=== PATIENT | male | born 1980 | race African-American/Black ===

== ENCOUNTER 2018-02-22 00:44 | Emergency (ER) | payer MEDICAID ==
[~2018-02-22] VITALS: Ht 185.4 cm; Wt 158.0 kg
[2018-02-22] MEDS ORDERED: SODIUM CHLORIDE 0.9% 1,000 ML IV ONE ×2 (04:16→05:59)
[2018-02-22] MEDS ORDERED: ONDANSETRON HCL 4MG/2ML INJ IV ONE (04:30)
[2018-02-22] MEDS ORDERED: MORPHINE SULFATE 10 MG/ML CPJ IV ONE (04:30)
[2018-02-22 04:41] LABS: BASOPHILS % 0.6 % (0.0-2.0); EOSINOPHILS % 2.7 % (0.0-5.0); HEMATOCRIT. 43.3 % (42.0-52.0); HEMOGLOBIN. 14.7 g/dL (14.0-18.0); LYMPHOCYTES % 9.7 % (20.0-50.0); MEAN CORPUSCULAR HEMOGLOBIN 31.5 pg (28.0-32.0); MEAN CORPUSCULAR VOLUME 92.8 fL (80.0-94.0); MEAN PLATELET VOLUME 6.8 fl (7.4-10.4); MONOCYTES % 6.4 % (2.0-8.0); NEUTROPHILS % 80.6 % (40.0-76.0); PLATELET 256 x1000/uL (130-400); RED BLOOD CELL COUNT 4.66 mill/uL (4.7-6.1); RED CELL DISTRIBUTION WIDTH 12.9 % (11.6-14.6)
[2018-02-22 04:43] LABS: CHLORIDE 97 mEq/L (98-107)
[2018-02-22] MEDS ORDERED: CEFTRIAXONE 1 G PREMIX 50 ML IV ONE (06:00)
[2018-02-22] MEDS ORDERED: IOHEXOL-350 100 ML BOTTLE ONE (06:57)
[2018-02-22 07:25] VITALS: BP 172/96
[2018-02-22] MEDS: SODIUM CHLORIDE 0.9% 1000ML BAG (SEPSIS BOLUS) IV ONE ×2 (07:30→07:54)
[2018-02-22 07:35] LABS: CLARITY URINE CLEAR (CLEAR); COLOR URINE YELLOW (YELLOW); KETONES URINE NEGATIVE (NEGATIVE); LEUKOCYTE ESTERASE URINE TRACE (NEGATIVE); NITRITE URINE NEGATIVE (NEGATIVE); OCCULT BLOOD URINE NEGATIVE (NEGATIVE); PH URINE 6.5 (4.5-8.0); PROTEIN URINE NEGATIVE (NEGATIVE); SPECIFIC GRAVITY URINE 1.014 (1.005-1.030)
== END 2018-02-22 07:50 | disposition home or self-care (01) ==
LOC: ER 06:12
DX: J02.9 Acute pharyngitis, unspecified (principal); R19.7 Diarrhea, unspecified; E11.9 Type 2 diabetes mellitus without complications; I10 Essential (primary) hypertension; E05.90 Thyrotoxicosis, unspecified without thyrotoxic crisis or storm; F12.10 Cannabis abuse, uncomplicated; Z79.82 Long term (current) use of aspirin; Z88.6 Allergy status to analgesic agent
CPT/HCPCS: 36415; 70491; 71045; 80053; 81003; 83605; 83690; 85025; 85610; 87040; 87070; 87430; 93005; 96361; 96365; 96375; 99284; J0696; J2270; J2405; J7030; Q9967

== ENCOUNTER 2019-05-16 00:50 | Inpatient (IN) | payer MEDICAID ==
[~2019-05-16] VITALS: Ht 185.4 cm; Wt 144.2 kg
[2019-05-16] MEDS ORDERED: ONDANSETRON HCL 4MG/2ML INJ IV STA ×2 (01:19→03:21)
[2019-05-16] MEDS ORDERED: MORPHINE SULFATE 4 MG/ML CPJ (NOT FOR IM USE) IV STA ×2 (01:19→03:21)
[2019-05-16] MEDS ORDERED: SODIUM CHLORIDE 0.9% 1,000 ML IV ONE (01:19)
[2019-05-16 01:44] LABS: BASOPHILS % 0.8 % (0.0-2.0); EOSINOPHILS % 2.4 % (0.0-5.0); HEMATOCRIT. 42.7 % (42.0-52.0); LYMPHOCYTES % 44.2 % (20.0-50.0); MEAN CORPUSCULAR HEMOGLOBIN 32.2 pg (28.0-32.0); MEAN PLATELET VOLUME 6.9 fl (7.4-10.4); MONOCYTES % 7.9 % (2.0-8.0); NEUTROPHILS % 44.7 % (40.0-76.0); PLATELET 252 x1000/uL (130-400); RED BLOOD CELL COUNT 4.65 mill/uL (4.7-6.1); RED CELL DISTRIBUTION WIDTH 13.2 % (11.6-14.6)
[2019-05-16 01:50] LABS: CHLORIDE 101 mEq/L (98-107)
[2019-05-16 01:52] LABS: INR 0.9; PARTIAL THROMBOPLASTIN TIME 23.8 sec (23.4-31.0); PROTHROMBIN TIME 9.9 sec (9.6-11.0)
[2019-05-16 02:26] LABS: CLARITY URINE CLEAR (CLEAR); COLOR URINE YELLOW (YELLOW); KETONES URINE TRACE (NEGATIVE); LEUKOCYTE ESTERASE URINE TRACE (NEGATIVE); NITRITE URINE NEGATIVE (NEGATIVE); OCCULT BLOOD URINE NEGATIVE (NEGATIVE); PH URINE 6.5 (4.5-8.0); PROTEIN URINE NEGATIVE (NEGATIVE); SPECIFIC GRAVITY URINE 1.035 (1.005-1.030)
[2019-05-16 09:57] VITALS: BP 137/82
[2019-05-16] MEDS ORDERED: ACETAMINOPHEN 325MG TABLET PO PRN (10:15)
[2019-05-16] MEDS ORDERED: SODIUM CHLORIDE 0.9% 1,000 ML IV SCH (10:15)
[2019-05-16] MEDS ORDERED: ENOXAPARIN 40MG/0.4ML SYR SUBCUT SCH (10:15)
[2019-05-16] MEDS ORDERED: ONDANSETRON HCL 4MG/2ML INJ IV PRN (10:15)
[2019-05-16] MEDS ORDERED: DEXTROSE 50% WATER 50ML SYRINGE IV PRN (10:45)
[2019-05-16] MEDS ORDERED: QUET100T MT (11:06)
[2019-05-16] MEDS ORDERED: HYDR12.54 MT (11:06)
[2019-05-16] MEDS ORDERED: LISI2.5T47 MT (11:06)
[2019-05-16] MEDS ORDERED: GLUCO8 PO (11:06)
[2019-05-16 11:55] LABS: CHLORIDE 103 mEq/L (98-107)
[2019-05-16 11:57] LABS: BASOPHILS % 0.6 % (0.0-2.0); EOSINOPHILS % 2.5 % (0.0-5.0); HEMATOCRIT. 44.7 % (42.0-52.0); HEMOGLOBIN. 14.9 g/dL (14.0-18.0); LYMPHOCYTES % 43.7 % (20.0-50.0); MEAN CORPUSCULAR HEMOGLOBIN 31.2 pg (28.0-32.0); MEAN CORPUSCULAR VOLUME 93.6 fL (80.0-94.0); MEAN PLATELET VOLUME 6.9 fl (7.4-10.4); MONOCYTES % 8.5 % (2.0-8.0); NEUTROPHILS % 44.7 % (40.0-76.0); PLATELET 221 x1000/uL (130-400); RED BLOOD CELL COUNT 4.78 mill/uL (4.7-6.1); RED CELL DISTRIBUTION WIDTH 13.2 % (11.6-14.6)
[2019-05-16 12:00] VITALS: BP 157/96
[2019-05-16] MEDS ORDERED: MORPHINE SULFATE 2 MG/ML CPJ (NOT FOR IM USE) IV NR (12:45)
[2019-05-16] MEDS: ENOXAPARIN 30MG/0.3ML SYR SUBCUT SCH ×2 (12:59→21:00)
[2019-05-16] MEDS: INSULIN LISPRO 100 UNITS/ML SUBCUT SCH ×3 (13:06→21:00)
[2019-05-16] MEDS: BLOOD SUGAR DIAGNOSTIC STRIP TEST SCH ×3 (13:06→20:46)
[2019-05-16 16:00] VITALS: BP 146/97
[2019-05-16] MEDS: METOCLOPRAMIDE HCL 10MG TABLET PO SCH ×2 (17:41→23:05)
[2019-05-16 20:00] VITALS: BP 129/92
[2019-05-16] MEDS: OMEPRAZOLE 20MG CAPSULE EXTENDED RELEASE PO SCH (20:47)
[2019-05-16] MEDS: LISINOPRIL 2.5MG TABLET PO SCH (23:28)
[2019-05-17] VITALS: BP 140/97
[2019-05-17 04:00] VITALS: BP 130/89
[2019-05-17] MEDS: METOCLOPRAMIDE HCL 10MG TABLET PO SCH (06:06)
[2019-05-17] MEDS: OMEPRAZOLE 20MG CAPSULE EXTENDED RELEASE PO SCH ×2 (06:06→09:44)
[2019-05-17] MEDS: BLOOD SUGAR DIAGNOSTIC STRIP TEST SCH (06:06)
[2019-05-17 07:24] LABS: BASOPHILS % 0.6 % (0.0-2.0); EOSINOPHILS % 2.2 % (0.0-5.0); HEMATOCRIT. 46.7 % (42.0-52.0); HEMOGLOBIN. 15.8 g/dL (14.0-18.0); LYMPHOCYTES % 41.6 % (20.0-50.0); MEAN CORPUSCULAR HEMOGLOBIN 31.3 pg (28.0-32.0); MEAN CORPUSCULAR VOLUME 92.4 fL (80.0-94.0); MEAN PLATELET VOLUME 6.8 fl (7.4-10.4); MONOCYTES % 8.3 % (2.0-8.0); NEUTROPHILS % 47.3 % (40.0-76.0); PLATELET 240 x1000/uL (130-400); RED BLOOD CELL COUNT 5.05 mill/uL (4.7-6.1); RED CELL DISTRIBUTION WIDTH 13.3 % (11.6-14.6)
[2019-05-17 07:50] LABS: HEPATITIS B SURFACE ANTIGEN NEGATIVE
[2019-05-17 08:20] LABS: HEPATITIS A AB IGM NEGATIVE (NEGATIVE)
[2019-05-17 08:22] LABS: CHLORIDE 103 mEq/L (98-107)
[2019-05-17] MEDS ORDERED: HYDROCHLOROTHIAZIDE 12.5MG CAPSULE PO SCH (09:00)
[2019-05-17] MEDS: INSULIN LISPRO 100 UNITS/ML SUBCUT SCH (09:38)
[2019-05-17] MEDS: LISINOPRIL 2.5MG TABLET PO SCH (09:43)
[2019-05-17] MEDS: ENOXAPARIN 30MG/0.3ML SYR SUBCUT SCH (09:44)
== END 2019-05-17 12:58 | disposition left against medical advice (07) | DRG 254 ==
LOC: ER 00:50 → EDBEDREQ 04:40 → ENRESERV 07:21 → 6EST 08:48
PROVIDERS: ADMIT Internal Medicine; ATTEND Internal Medicine
DX: K40.20 Bilateral inguinal hernia, without obstruction or gangrene, not specified as recurrent (principal); K31.84 Gastroparesis; E11.43 Type 2 diabetes mellitus with diabetic autonomic (poly)neuropathy; E11.65 Type 2 diabetes mellitus with hyperglycemia; E87.5 Hyperkalemia; E88.09 Other disorders of plasma-protein metabolism, not elsewhere classified; I10 Essential (primary) hypertension; K29.70 Gastritis, unspecified, without bleeding; Z91.14 Patient's other noncompliance with medication regimen
CPT/HCPCS: 36415; 71045; 74176; 80048; 80053; 81003; 82962; 83036; 85025; 86705; 86709; 86803; 86850; 86900; 87340; 93005; J1650; J1815; J2270; J2405; J7030; J8597

== ENCOUNTER 2020-03-20 15:33 | Emergency (ER) | payer MEDICAID ==
[~2020-03-20] VITALS: Ht 190.5 cm; Wt 138.1 kg
[~2020-03-20 15:33] MED LIST: GLUCO8 PO; HYDR12.54 MT; LISI2.5T47 MT; QUET100T MT
[2020-03-20] MEDS ORDERED: ACETAMINOPHEN 325MG TABLET PO ONE (16:15)
[2020-03-20 16:50] LABS: BASOPHILS % 0.7 % (0.0-2.0); EOSINOPHILS % 4.1 % (0.0-5.0); HEMATOCRIT. 46.4 % (42.0-52.0); LYMPHOCYTES % 36.1 % (20.0-50.0); MEAN CORPUSCULAR HEMOGLOBIN 31.3 pg (28.0-32.0); MEAN CORPUSCULAR VOLUME 90.7 fL (80.0-94.0); MEAN PLATELET VOLUME 7.2 fl (7.4-10.4); MONOCYTES % 6.6 % (2.0-8.0); NEUTROPHILS % 52.5 % (40.0-76.0); PLATELET 286 x1000/uL (130-400); RED BLOOD CELL COUNT 5.11 mill/uL (4.7-6.1)
[2020-03-20 16:59] LABS: CHLORIDE 99 mEq/L (98-107)
[2020-03-20 17:30] VITALS: BP 146/85
[2020-03-20] MEDS ORDERED: MORPHINE SULFATE 4 MG/ML CPJ (NOT FOR IM USE) IV ONE (17:45)
== END 2020-03-20 19:00 | disposition home or self-care (01) ==
LOC: ER 15:33
DX: U07.1 COVID-19 (principal); S46.911A Strain of unspecified muscle, fascia and tendon at shoulder and upper arm level, right arm, initial encounter; S29.011A Strain of muscle and tendon of front wall of thorax, initial encounter; M79.10 Myalgia, unspecified site; E11.9 Type 2 diabetes mellitus without complications; I10 Essential (primary) hypertension; J45.909 Unspecified asthma, uncomplicated; Z87.828 Personal history of other (healed) physical injury and trauma; Z79.84 Long term (current) use of oral hypoglycemic drugs; Z88.6 Allergy status to analgesic agent; X58.XXXA Exposure to other specified factors, initial encounter; Y93.89 Activity, other specified; Y92.018 Other place in single-family (private) house as the place of occurrence of the external cause
CPT/HCPCS: 36415; 71045; 80053; 83880; 84484; 85025; 93005; 96374; 99285; C9803; J2270; U0003

== ENCOUNTER 2020-04-13 13:44 | Emergency (ER) | payer MEDICAID ==
[~2020-04-13] VITALS: Ht 185.4 cm; Wt 138.0 kg
[2020-04-13] MEDS ORDERED: ONDANSETRON HCL 4MG/2ML INJ IV STA (14:17)
[2020-04-13] MEDS ORDERED: MORPHINE SULFATE 4 MG/ML CPJ (NOT FOR IM USE) IV STA (14:17)
[2020-04-13] MEDS ORDERED: SODIUM CHLORIDE 0.9% 1,000 ML IV ONE (14:30)
[2020-04-13 14:57] LABS: BASOPHILS % 0.7 % (0.0-2.0); EOSINOPHILS % 2.2 % (0.0-5.0); HEMATOCRIT. 45.2 % (42.0-52.0); HEMOGLOBIN. 15.2 g/dL (14.0-18.0); LYMPHOCYTES % 34.5 % (20.0-50.0); MEAN CORPUSCULAR HEMOGLOBIN 30.8 pg (28.0-32.0); MEAN PLATELET VOLUME 7.1 fl (7.4-10.4); MONOCYTES % 8.7 % (2.0-8.0); NEUTROPHILS % 53.9 % (40.0-76.0); PLATELET 221 x1000/uL (130-400); RED BLOOD CELL COUNT 4.92 mill/uL (4.7-6.1); RED CELL DISTRIBUTION WIDTH 13.3 % (11.6-14.6)
[2020-04-13 15:06] LABS: PROTHROMBIN TIME 10.3 sec (9.6-11.0)
[2020-04-13 15:09] LABS: CHLORIDE 102 mEq/L (98-107)
[2020-04-13 16:37] VITALS: BP 144/88
== END 2020-04-13 16:37 | disposition home or self-care (01) ==
LOC: ER 13:44
DX: R10.9 Unspecified abdominal pain (principal); K76.0 Fatty (change of) liver, not elsewhere classified; J45.909 Unspecified asthma, uncomplicated; E11.9 Type 2 diabetes mellitus without complications; E78.00 Pure hypercholesterolemia, unspecified; I10 Essential (primary) hypertension; Z88.6 Allergy status to analgesic agent
CPT/HCPCS: 36415; 74176; 80053; 83690; 85025; 85610; 93005; 96361; 96374; 96375; 99285; J2270; J2405; J7030; Z7610

== ENCOUNTER 2020-04-25 23:02 | Emergency (ER) | payer MEDICAID, OTHER ==
[~2020-04-25] VITALS: Ht 185.4 cm; Wt 137.0 kg
[2020-04-26] MEDS ORDERED: LIDOCAINE HCL/EPINEPHRINE 1%-EPI 1:100,000 10 ML VIAL IJ ONE (00:30)
[2020-04-26] MEDS ORDERED: ACETAMINOPHEN 325MG TABLET PO ONE (00:30)
[2020-04-26] MEDS ORDERED: CEPH500C2 MT (01:56)
[2020-04-26] MEDS ORDERED: SULF1TAB48 MT (01:56)
[2020-04-26 02:16] VITALS: BP 130/80
== END 2020-04-26 02:18 | disposition home or self-care (01) ==
LOC: ER 23:02
DX: L02.31 Cutaneous abscess of buttock (principal); E11.9 Type 2 diabetes mellitus without complications; I10 Essential (primary) hypertension; E78.00 Pure hypercholesterolemia, unspecified; J45.909 Unspecified asthma, uncomplicated; Z88.6 Allergy status to analgesic agent
CPT/HCPCS: 10060; 99284; Z7610

== ENCOUNTER 2020-11-09 12:26 | Emergency (ER) | payer MEDICAID, OTHER ==
[~2020-11-09] VITALS: Ht 185.4 cm; Wt 138.0 kg
[~2020-11-09 12:26] MED LIST changes: +CEPH500C2 MT; +SULF1TAB48 MT
[2020-11-09] MEDS ORDERED: MORPHINE SULFATE 4 MG/ML CPJ (NOT FOR IM USE) IV STA (13:08)
[2020-11-09 13:47] LABS: BASOPHILS % 0.6 % (0.0-2.0); EOSINOPHILS % 2.2 % (0.0-5.0); HEMATOCRIT. 42.1 % (42.0-52.0); HEMOGLOBIN. 14.7 g/dL (14.0-18.0); LYMPHOCYTES % 20.9 % (20.0-50.0); MEAN CORPUSCULAR HEMOGLOBIN 31.8 pg (28.0-32.0); MEAN CORPUSCULAR VOLUME 91.3 fL (80.0-94.0); MEAN PLATELET VOLUME 7.2 fl (7.4-10.4); MONOCYTES % 9.2 % (2.0-8.0); NEUTROPHILS % 67.1 % (40.0-76.0); PLATELET 270 x1000/uL (130-400); RED BLOOD CELL COUNT 4.61 mill/uL (4.7-6.1); RED CELL DISTRIBUTION WIDTH 12.4 % (11.6-14.6)
[2020-11-09 13:50] LABS: CHLORIDE 103 mEq/L (98-107)
[2020-11-09] MEDS ORDERED: LIDOCAINE HCL 1% 20ML VIAL (Pyxis) INJ INFIL ONE (16:00)
[2020-11-09] MEDS ORDERED: MORPHINE SULFATE 4 MG/ML CPJ (NOT FOR IM USE) IV ONE (16:00)
[2020-11-09] MEDS ORDERED: SULF1TAB48 MT (16:27)
[2020-11-09] MEDS ORDERED: POLY119P2 MT (16:27)
[2020-11-09] MEDS ORDERED: IOHEXOL-300 100 ML BOTTLE ONE (16:44)
[2020-11-09 16:50] VITALS: BP 148/82
== END 2020-11-09 16:58 | disposition home or self-care (01) ==
LOC: ER 12:26
DX: L02.215 Cutaneous abscess of perineum (principal); E78.00 Pure hypercholesterolemia, unspecified; I10 Essential (primary) hypertension; J45.909 Unspecified asthma, uncomplicated; E11.9 Type 2 diabetes mellitus without complications; Z87.828 Personal history of other (healed) physical injury and trauma; Z79.84 Long term (current) use of oral hypoglycemic drugs; Z88.6 Allergy status to analgesic agent
CPT/HCPCS: 36415; 46050; 72193; 80053; 82962; 85025; 96374; 96376; 99285; J2270; J3490; Q9967; 10060

== ENCOUNTER 2021-02-23 18:29 | Emergency (ER) | payer MEDICAID, OTHER ==
[~2021-02-23] VITALS: Ht 185.4 cm; Wt 136.0 kg
[~2021-02-23 18:29] MED LIST changes: +POLY119P2 MT
[2021-02-23] MEDS ORDERED: ACETAMINOPHEN 325MG TABLET PO STA (18:48)
[2021-02-23] MEDS ORDERED: SODIUM CHLORIDE 0.9% 1000ML BAG (SEPSIS BOLUS) IV ONE (19:00)
[2021-02-23] MEDS ORDERED: CEFTRIAXONE 1 G PREMIX 50 ML IV ONE (19:00)
[2021-02-23] MEDS ORDERED: IPRATROPIUM BROMIDE (0.02%) 0.5MG/2.5ML NEB HHN STA (19:17)
[2021-02-23] MEDS ORDERED: ALBUTEROL (0.083%) 2.5MG/3ML NEB HHN STA (19:17)
[2021-02-23 21:20] LABS: BASOPHILS % 0.4 % (0.0-2.0); EOSINOPHILS % 1.1 % (0.0-5.0); HEMATOCRIT. 39.6 % (42.0-52.0); HEMOGLOBIN. 13.6 g/dL (14.0-18.0); LYMPHOCYTES % 8.5 % (20.0-50.0); MEAN CORPUSCULAR HEMOGLOBIN 31.4 pg (28.0-32.0); MEAN CORPUSCULAR VOLUME 91.2 fL (80.0-94.0); MONOCYTES % 10.8 % (2.0-8.0); NEUTROPHILS % 79.2 % (40.0-76.0); PLATELET 225 x1000/uL (130-400); RED BLOOD CELL COUNT 4.34 mill/uL (4.7-6.1); RED CELL DISTRIBUTION WIDTH 12.9 % (11.6-14.6)
[2021-02-23 21:27] LABS: CHLORIDE 101 mEq/L (98-107)
[2021-02-23] MEDS ORDERED: VANCOMYCIN 1 G PREMIX 200 ML IV SCH (21:45)
[2021-02-23 22:37] LABS: CLARITY URINE CLEAR (CLEAR); COLOR URINE YELLOW (YELLOW); KETONES URINE NEGATIVE (NEGATIVE); LEUKOCYTE ESTERASE URINE 1+ (NEGATIVE); NITRITE URINE NEGATIVE (NEGATIVE); OCCULT BLOOD URINE NEGATIVE (NEGATIVE); PH URINE 7.5 (4.5-8.0); PROTEIN URINE TRACE (NEGATIVE); SPECIFIC GRAVITY URINE 1.025 (1.005-1.030)
[2021-02-23 23:00] VITALS: BP 132/89
== END 2021-02-23 23:16 | disposition short-term general hospital (02) ==
LOC: ER 18:29 → CANBEDREQ 02-24 03:04
DX: U07.1 COVID-19 (principal); A41.9 Sepsis, unspecified organism; R65.20 Severe sepsis without septic shock; I10 Essential (primary) hypertension; J45.909 Unspecified asthma, uncomplicated; E11.9 Type 2 diabetes mellitus without complications; E78.00 Pure hypercholesterolemia, unspecified; Z88.6 Allergy status to analgesic agent; Z79.899 Other long term (current) drug therapy; Z98.890 Other specified postprocedural states
CPT/HCPCS: 36415; 71045; 80053; 81003; 82962; 83605; 83880; 84484; 85025; 87040; 87086; 87426; 93005; 96365; 99285; J0696

== ENCOUNTER 2021-03-22 01:02 | Emergency (ER) | payer MEDICAID, OTHER ==
[~2021-03-22] VITALS: Ht 185.4 cm; Wt 139.0 kg
[2021-03-22] MEDS ORDERED: ACETAMINOPHEN WITH CODEINE 300/30MG TABLET PO ONE (02:15)
[2021-03-22 04:30] VITALS: BP 162/85
== END 2021-03-22 04:32 | disposition home or self-care (01) ==
LOC: ER 01:02
DX: M79.18 Myalgia, other site (principal); I83.91 Asymptomatic varicose veins of right lower extremity; E11.9 Type 2 diabetes mellitus without complications; I10 Essential (primary) hypertension; Z87.828 Personal history of other (healed) physical injury and trauma; Z98.890 Other specified postprocedural states; Z96.659 Presence of unspecified artificial knee joint; Z79.84 Long term (current) use of oral hypoglycemic drugs; Z88.6 Allergy status to analgesic agent
CPT/HCPCS: 76857; 99284

== ENCOUNTER 2021-03-24 00:26 | Emergency (ER) | payer OTHER ==
[~2021-03-24] VITALS: Ht 185.4 cm; Wt 138.0 kg
[2021-03-24] MEDS ORDERED: TETANUS, DIPHTHERIA, PERTUSSIS VAC/PF 0.5ML (>10YR OLD) IM ONE (00:45)
[2021-03-24] MEDS ORDERED: BACITRACIN ZINC OINT UDPKT TOP ONE (00:45)
[2021-03-24] MEDS ORDERED: AMOX-424 MT (01:10)
[2021-03-24] MEDS ORDERED: BO1 TP (01:10)
[2021-03-24 01:25] VITALS: BP 160/90
== END 2021-03-24 01:39 | disposition home or self-care (01) ==
LOC: ER 00:26
DX: S41.151A Open bite of right upper arm, initial encounter (principal); E11.9 Type 2 diabetes mellitus without complications; I10 Essential (primary) hypertension; J45.909 Unspecified asthma, uncomplicated; Z88.6 Allergy status to analgesic agent; Z98.890 Other specified postprocedural states; Z96.659 Presence of unspecified artificial knee joint; Z79.84 Long term (current) use of oral hypoglycemic drugs; Y04.1XXA Assault by human bite, initial encounter; Y93.89 Activity, other specified; Y92.89 Other specified places as the place of occurrence of the external cause
CPT/HCPCS: 90471; 90715; 99283

== ENCOUNTER 2021-05-04 00:43 | Emergency (ER) | payer MEDICAID, OTHER ==
[~2021-05-04] VITALS: Ht 185.4 cm; Wt 138.0 kg
[~2021-05-04 00:43] MED LIST changes: +AMOX-424 MT; +BO1 TP
[2021-05-04] MEDS ORDERED: ONDANSETRON HCL 4MG/2ML INJ IV STA (01:16)
[2021-05-04] MEDS ORDERED: MORPHINE SULFATE 4 MG/ML CPJ (NOT FOR IM USE) IV STA (01:16)
[2021-05-04] MEDS ORDERED: SODIUM CHLORIDE 0.9% 1,000 ML IV ONE (01:30)
[2021-05-04 02:33] LABS: BASOPHILS % 0.3 % (0.0-2.0); EOSINOPHILS % 1.8 % (0.0-5.0); HEMOGLOBIN. 14.6 g/dL (14.0-18.0); LYMPHOCYTES % 33.1 % (20.0-50.0); MEAN CORPUSCULAR HEMOGLOBIN 30.8 pg (28.0-32.0); MEAN CORPUSCULAR VOLUME 90.3 fL (80.0-94.0); MONOCYTES % 7.2 % (2.0-8.0); NEUTROPHILS % 57.6 % (40.0-76.0); PLATELET 284 x1000/uL (130-400); RED BLOOD CELL COUNT 4.76 mill/uL (4.7-6.1); RED CELL DISTRIBUTION WIDTH 12.9 % (11.6-14.6)
[2021-05-04 02:42] LABS: CHLORIDE 103 mEq/L (98-107)
[2021-05-04 04:40] VITALS: BP 150/86
== END 2021-05-04 04:41 | disposition home or self-care (01) ==
LOC: ER 00:43
DX: R51.9 Headache, unspecified (principal); R07.89 Other chest pain; I10 Essential (primary) hypertension; E11.9 Type 2 diabetes mellitus without complications; J45.909 Unspecified asthma, uncomplicated; Z88.6 Allergy status to analgesic agent; Z79.899 Other long term (current) drug therapy
CPT/HCPCS: 36415; 70450; 71045; 80053; 83880; 84484; 85025; 93005; 96361; 96374; 96375; 99291; J2270; J2405; J7030

== ENCOUNTER 2021-06-17 17:48 | Emergency (ER) | payer MEDICAID, OTHER ==
[~2021-06-17] VITALS: Ht 193 cm; Wt 137.0 kg
[2021-06-17 18:29] VITALS: BP 138/81
[2021-06-17] MEDS ORDERED: IBUPROFEN 600MG TABLET PO STA (18:42)
[2021-06-17] MEDS ORDERED: ACETAMINOPHEN 325MG TABLET PO ONE (20:15)
[2021-06-17 20:23] LABS: BASOPHILS % 0.4 % (0.0-2.0); EOSINOPHILS % 2.9 % (0.0-5.0); HEMATOCRIT. 42.8 % (42.0-52.0); HEMOGLOBIN. 14.2 g/dL (14.0-18.0); LYMPHOCYTES % 37.2 % (20.0-50.0); MEAN CORPUSCULAR HEMOGLOBIN 30.6 pg (28.0-32.0); MEAN CORPUSCULAR VOLUME 92.2 fL (80.0-94.0); MEAN PLATELET VOLUME 6.9 fl (7.4-10.4); MONOCYTES % 11.2 % (2.0-8.0); NEUTROPHILS % 48.3 % (40.0-76.0); PLATELET 274 x1000/uL (130-400); RED BLOOD CELL COUNT 4.65 mill/uL (4.7-6.1); RED CELL DISTRIBUTION WIDTH 12.8 % (11.6-14.6)
[2021-06-17 20:34] LABS: CHLORIDE 105 mEq/L (98-107)
[2021-06-17 20:37] LABS: ETHANOL BLOOD < 10 mg/dL
[2021-06-17] MEDS ORDERED: GABA-529 MT (20:42)
== END 2021-06-17 20:49 | disposition home or self-care (01) ==
LOC: ER 17:48
DX: M79.18 Myalgia, other site (principal); G62.9 Polyneuropathy, unspecified; M79.641 Pain in right hand; M79.642 Pain in left hand; J45.909 Unspecified asthma, uncomplicated; E11.9 Type 2 diabetes mellitus without complications; I10 Essential (primary) hypertension; Z79.899 Other long term (current) drug therapy
CPT/HCPCS: 36415; 80053; 80320; 82962; 85025; 99283; G0480

== ENCOUNTER 2021-08-07 12:49 | Emergency (ER) | payer OTHER ==
[~2021-08-07] VITALS: Ht 177.8 cm; Wt 175.0 kg
[~2021-08-07 12:49] MED LIST changes: +AMOX-424 PO; +GABA-529 MT; +TOPUD PO
[2021-08-07] MEDS ORDERED: BACITRACIN ZINC OINT UDPKT TOP ONE (14:45)
[2021-08-07] MEDS ORDERED: HYDROCODONE/ACETAMINOPHEN 5/325MG TABLET PO ONE (14:45)
[2021-08-07] MEDS ORDERED: LIDOCAINE HCL/EPINEPHRINE 1%-EPI 1:100,000 20 ML VIAL INFIL ONE (14:45)
[2021-08-07 15:14] VITALS: BP 126/77
[2021-08-07] MEDS ORDERED: HYDR-4001 PO (17:56)
[2021-08-07] MEDS ORDERED: SULF1TAB48 PO (17:56)
[2021-08-07] MEDS ORDERED: AMOX1TAB16 PO (17:56)
== END 2021-08-07 18:57 | disposition home or self-care (01) ==
LOC: ER 12:49
DX: L02.31 Cutaneous abscess of buttock (principal); J45.909 Unspecified asthma, uncomplicated; I10 Essential (primary) hypertension; E11.9 Type 2 diabetes mellitus without complications; Z79.899 Other long term (current) drug therapy; Z88.6 Allergy status to analgesic agent
CPT/HCPCS: 99283; J3490

== ENCOUNTER 2021-09-24 01:04 | Emergency (ER) | payer OTHER ==
[~2021-09-24] VITALS: Ht 185.4 cm; Wt 139.0 kg
[~2021-09-24 01:04] MED LIST changes: +AMOX1TAB16 PO; +HYDR-4001 PO; +SULF1TAB48 PO
[2021-09-24] MEDS ORDERED: ONDANSETRON HCL 4MG/2ML INJ IV STA (03:29)
[2021-09-24] MEDS ORDERED: MORPHINE SULFATE 4 MG/ML CPJ (NOT FOR IM USE) IV STA (03:29)
[2021-09-24] MEDS ORDERED: SODIUM CHLORIDE 0.9% 1,000 ML IV ONE (03:30)
[2021-09-24 04:41] LABS: BASOPHILS % 0.7 % (0.0-2.0); EOSINOPHILS % 1.6 % (0.0-5.0); HEMATOCRIT. 45.1 % (42.0-52.0); HEMOGLOBIN. 14.8 g/dL (14.0-18.0); LYMPHOCYTES % 24.8 % (20.0-50.0); MEAN CORPUSCULAR HEMOGLOBIN 30.7 pg (28.0-32.0); MEAN CORPUSCULAR VOLUME 93.2 fL (80.0-94.0); MEAN PLATELET VOLUME 7.1 fl (7.4-10.4); MONOCYTES % 14.3 % (2.0-8.0); NEUTROPHILS % 58.6 % (40.0-76.0); PLATELET 223 x1000/uL (130-400); RED BLOOD CELL COUNT 4.84 mill/uL (4.7-6.1); RED CELL DISTRIBUTION WIDTH 13.2 % (11.6-14.6)
[2021-09-24 05:18] LABS: CHLORIDE 99 mEq/L (98-107)
[2021-09-24 05:28] LABS: BETA HYDROXYBUTYRATE 0.1 mMol/L (0.0-0.3)
[2021-09-24 06:38] LABS: CLARITY URINE CLEAR (CLEAR); COLOR URINE YELLOW (YELLOW); KETONES URINE NEGATIVE (NEGATIVE); LEUKOCYTE ESTERASE URINE NEGATIVE (NEGATIVE); NITRITE URINE NEGATIVE (NEGATIVE); OCCULT BLOOD URINE TRACE (NEGATIVE); PH URINE 5.5 (4.5-8.0); PROTEIN URINE NEGATIVE (NEGATIVE); SPECIFIC GRAVITY URINE 1.036 (1.005-1.030)
[2021-09-24 08:38] VITALS: BP 124/73
== END 2021-09-24 09:08 | disposition short-term general hospital (02) ==
LOC: ER 01:04
DX: U07.1 COVID-19 (principal); E11.65 Type 2 diabetes mellitus with hyperglycemia; I10 Essential (primary) hypertension; J45.909 Unspecified asthma, uncomplicated; Z79.84 Long term (current) use of oral hypoglycemic drugs; Z88.6 Allergy status to analgesic agent
CPT/HCPCS: 36415; 71045; 74176; 80053; 81003; 82010; 82962; 83605; 83690; 84145; 84484; 85025; 87040; 87426; 93005; 96374; 96375; 99291; C9803; J2270; J2405; J7030

== ENCOUNTER 2021-11-07 00:17 | Emergency (ER) | payer MEDICAID, OTHER ==
[~2021-11-07] VITALS: Ht 185.4 cm; Wt 136.0 kg
[2021-11-07 01:32] VITALS: BP 127/85
== END 2021-11-07 05:50 | disposition left against medical advice (07) ==
LOC: ER 00:17
DX: Z53.21 Procedure and treatment not carried out due to patient leaving prior to being seen by health care provider (principal)

== ENCOUNTER 2022-01-28 00:20 | Emergency (ER) | payer OTHER ==
[~2022-01-28] VITALS: Ht 185.4 cm; Wt 135.8 kg
[2022-01-28] MEDS ORDERED: AMOXICILLIN 500 MG CAPSULE PO ONE (03:45)
[2022-01-28] MEDS ORDERED: HYDROCODONE/ACETAMINOPHEN 5/325MG TABLET PO ONE (03:45)
[2022-01-28] MEDS ORDERED: HYDR-4001 MT (03:52)
[2022-01-28] MEDS ORDERED: AMOX-494 MT (03:53)
[2022-01-28 04:15] VITALS: BP 145/104
[2022-01-28] MEDS ORDERED: HYDROCODONE/ACETAMINOPHEN 5/325MG TABLET PO NR (04:15)
[2022-01-28] MEDS ORDERED: AMOXICILLIN 500 MG CAPSULE PO NR (04:15)
== END 2022-01-28 04:20 | disposition home or self-care (01) ==
LOC: ER 00:20
DX: K08.89 Other specified disorders of teeth and supporting structures (principal); I10 Essential (primary) hypertension; E11.9 Type 2 diabetes mellitus without complications; J45.909 Unspecified asthma, uncomplicated; E66.9 Obesity, unspecified; K43.9 Ventral hernia without obstruction or gangrene; Z68.39 Body mass index [BMI] 39.0-39.9, adult; Z87.828 Personal history of other (healed) physical injury and trauma; Z98.890 Other specified postprocedural states; Z79.84 Long term (current) use of oral hypoglycemic drugs; Z88.6 Allergy status to analgesic agent
CPT/HCPCS: 99283

== ENCOUNTER 2022-11-17 15:13 | Emergency (ER) | payer OTHER ==
[~2022-11-17] VITALS: Ht 185.4 cm; Wt 132.0 kg
[~2022-11-17 15:13] MED LIST changes: +AMOX-494 MT; +HYDR-4001 MT
[2022-11-17 15:20] VITALS: BP 133/86; TEMP 99.2; O2SAT 98
[2022-11-17 15:22] VITALS: PULSE 78; RESP 16
[2022-11-17] MEDS ORDERED: LIDOCAINE HCL/EPINEPHRINE 1%-EPI 1:100,000 20 ML VIAL INFIL ONE (22:45)
[2022-11-17] MEDS ORDERED: HYDROCODONE/ACETAMINOPHEN 5/325MG TABLET PO ONE (22:45)
[2022-11-17] MEDS ORDERED: BACITRACIN ZINC OINT UDPKT TOP ONE (22:45)
[2022-11-17] MEDS ORDERED: SULF1TAB48 MT (23:39)
== END 2022-11-18 00:23 | disposition home or self-care (01) ==
LOC: ER 15:13
DX: L02.31 Cutaneous abscess of buttock (principal); J45.909 Unspecified asthma, uncomplicated; E11.9 Type 2 diabetes mellitus without complications; I10 Essential (primary) hypertension; Z79.899 Other long term (current) drug therapy
CPT/HCPCS: 10060; 99283; J3490; Z7610 ×2

== ENCOUNTER 2023-07-07 18:48 | Inpatient (IN) | payer BC, MEDICAID, OTHER ==
[~2023-07-07] VITALS: Ht 185.4 cm; Wt 145.1 kg
[2023-07-07 23:05] LABS: BASOPHILS % 0.5 % (0.0-2.0); EOSINOPHILS % 0.6 % (0.0-5.0); HEMATOCRIT. 35.9 % (42.0-52.0); HEMOGLOBIN. 11.6 g/dL (14.0-18.0); LYMPHOCYTES % 24.9 % (20.0-50.0); MEAN CORPUSCULAR HEMOGLOBIN 28.8 pg (28.0-32.0); MEAN CORPUSCULAR HGB CONC 32.3 g/dL (31.0-37.0); MEAN CORPUSCULAR VOLUME 89.2 fL (80.0-94.0); MEAN PLATELET VOLUME 7.2 fl (7.4-10.4); MONOCYTES % 7.1 % (2.0-8.0); NEUTROPHILS % 66.9 % (40.0-76.0); PLATELET 352 x1000/uL (130-400); RED BLOOD CELL COUNT 4.02 mill/uL (4.7-6.1); RED CELL DISTRIBUTION WIDTH 16.4 % (11.6-14.6)
[2023-07-07 23:13] LABS: CHLORIDE 106 mEq/L (98-107); POTASSIUM 4.4 mEq/L (3.5-5.1); SODIUM 135 mEq/L (136-145)
[2023-07-07 23:14] LABS: CALCIUM 8.7 mg/dL (8.7-10.4); CARBON DIOXIDE 23 mEq/L (21-32)
[2023-07-07 23:19] LABS: CREATININE 1.1 mg/dL (0.6-1.3); UREA NITROGEN BLOOD 16 mg/dL (9-23)
[2023-07-07 23:31] LABS: GLUCOSE 125 mg/dL (70-105)
[2023-07-08 04:00] VITALS: BP 130/96; PULSE 104; TEMP 96.4
[2023-07-08 04:26] VITALS: BP 130/96; PULSE 102; RESP 20; TEMP 96.4
[2023-07-08] MEDS ORDERED: DEXTROSE 50% WATER 50ML SYRINGE IV PRN (07:45)
[2023-07-08] MEDS ORDERED: ACETAMINOPHEN 325MG TABLET PO PRN ×2 (07:45)
[2023-07-08] MEDS ORDERED: IPRATROPIUM/ALBUTEROL 0.5-3(2.5)MG/3ML NEB HHN PRN (07:45)
[2023-07-08] MEDS: INSULIN LISPRO 100 UNITS/ML SUBCUT SCH (07:50)
[2023-07-08 08:00] VITALS: BP 127/82; PULSE 106; RESP 20; TEMP 97.9
[2023-07-08] MEDS: BLOOD SUGAR DIAGNOSTIC STRIP TEST SCH (08:00)
[2023-07-08] MEDS: FUROSEMIDE 40MG/4ML VIAL IVP SCH (10:07)
[2023-07-08] MEDS: ENOXAPARIN 40MG/0.4ML SYR SUBCUT SCH (10:07)
[2023-07-08] MEDS: PANTOPRAZOLE 40MG DR TABLET PO SCH (10:08)
[2023-07-08] MEDS: LOSARTAN 25 MG TABLET PO SCH (10:08)
[2023-07-08] MEDS: METOPROLOL TARTRATE 50MG TABLET PO SCH (10:09)
[2023-07-08 11:41] LABS: IRON 45 ug/dL (65-175)
[2023-07-08 11:43] LABS: TRIGLYCERIDE 51 mg/dL (0-150)
[2023-07-08 11:44] LABS: LDL CHOLESTEROL 81 mg/dL (5-100); TOTAL IRON BINDING CAPACITY 305 ug/dl (250-425)
[2023-07-08 11:45] LABS: CHOLESTEROL 116 mg/dL (<200); HDL CHOLESTEROL 29 mg/dL (>55); PHOSPHORUS 2.9 mg/dL (2.5-4.9)
[2023-07-08 11:48] LABS: T4 FREE 0.96 ng/dL (0.89-1.76); THYROID STIMULATING HORMONE 2.25 uIU/mL (0.55-4.78)
[2023-07-08 11:51] LABS: FOLIC ACID (FOLATE) SERUM 11.26 ng/mL (>5.38)
[2023-07-08 11:52] LABS: VITAMIN B12 SERUM 877 pg/mL (211-911)
[2023-07-08 12:00] VITALS: BP 118/62; PULSE 98; RESP 18; TEMP 97.3
[2023-07-08] MEDS: ONDANSETRON HCL 4MG/2ML INJ IV PRN (13:51)
[2023-07-08 16:00] VITALS: BP 110/70; PULSE 85; RESP 19; TEMP 97
[2023-07-08] MEDS: APIXABAN 5 MG TABLET PO SCH (17:38)
[2023-07-08] MEDS: SPIRONOLACTONE 25MG TABLET PO SCH (17:39)
[2023-07-08 20:00] VITALS: BP 114/75; PULSE 93; RESP 16; TEMP 97.1
[2023-07-08 21:46] LABS: TROPONIN I HIGH SENSITIVITY 27 ng/L (3.0-53)
[2023-07-08] MEDS: INSULIN GLARGINE 100 UNITS/ML SUBCUT SCH (21:51)
[2023-07-09] VITALS: BP 118/85; PULSE 95; RESP 17; TEMP 97.4
[2023-07-09 04:00] VITALS: BP 115/75; PULSE 83; RESP 19; TEMP 97
[2023-07-09 06:01] LABS: CHLORIDE 104 mEq/L (98-107); POTASSIUM 4.3 mEq/L (3.5-5.1); SODIUM 137 mEq/L (136-145)
[2023-07-09 06:02] LABS: CALCIUM 8.7 mg/dL (8.7-10.4); CARBON DIOXIDE 24 mEq/L (21-32)
[2023-07-09 06:07] LABS: GLUCOSE 102 mg/dL (70-105); UREA NITROGEN BLOOD 20 mg/dL (9-23)
[2023-07-09 06:08] LABS: ALANINE AMINOTRANSFERASE 65 IU/L (10-49)
[2023-07-09 06:09] LABS: ASPARTATE AMINOTRANSFERASE 61 IU/L (<34); PROTEIN TOTAL 6.1 g/dL (6.0-8.3)
[2023-07-09 08:00] VITALS: BP 128/81; PULSE 95; RESP 18; TEMP 96.4
[2023-07-09 12:00] VITALS: BP 127/82; PULSE 91; RESP 19; TEMP 97.5
[2023-07-09 16:00] VITALS: BP 144/96; PULSE 86; RESP 18; TEMP 97.6
[2023-07-09 20:04] LABS: *AMPHETAMINES SCREEN URINE NEGATIVE (NEGATIVE); *BARBITURATES SCREEN URINE NEGATIVE (NEGATIVE); *COCAINE SCREEN URINE PRESUMPTIVE POSITIVE (NEGATIVE); CANNABINOID URINE SCREEN PRESUMPTIVE POSITIVE (NEGATIVE); ECSTASY MDMA SCREEN URINE NEGATIVE (NEGATIVE); METHADONE URINE SCREEN NEGATIVE (NEGATIVE); OPIATES URINE SCREEN NEGATIVE (NEGATIVE); PHENCYCLIDINE URINE SCREEN NEGATIVE (NEGATIVE)
[2023-07-09 20:13] LABS: *BENZODIAZEPINES SCREEN URINE NEGATIVE (NEGATIVE)
[2023-07-09 22:00] VITALS: BP 112/84; PULSE 93; RESP 20; TEMP 97.8
[2023-07-10] VITALS: PULSE 98; RESP 24
[2023-07-10 04:00] VITALS: BP 131/88; PULSE 95; RESP 26; TEMP 97.6
[2023-07-10 07:59] LABS: CALCIUM 8.4 mg/dL (8.7-10.4); CHLORIDE 104 mEq/L (98-107); POTASSIUM 3.8 mEq/L (3.5-5.1); SODIUM 136 mEq/L (136-145)
[2023-07-10 08:00] VITALS: BP 130/89; PULSE 90; RESP 18; TEMP 97.8
[2023-07-10 08:00] LABS: CARBON DIOXIDE 25 mEq/L (21-32)
[2023-07-10 08:05] LABS: CREATININE 0.9 mg/dL (0.6-1.3); GLUCOSE 105 mg/dL (70-105); UREA NITROGEN BLOOD 22 mg/dL (9-23)
[2023-07-10 11:41] VITALS: BP 118/93; PULSE 72; TEMP 98; O2SAT 96
[2023-07-10 12:00] VITALS: BP 118/93; PULSE 72; RESP 18; TEMP 98
[2023-07-10] MEDS: FUROSEMIDE 40MG/4ML VIAL IVP SCH (13:31)
[2023-07-11] MEDS ORDERED: FAMOTIDINE 20MG TABLET PO SCH (09:00)
== END 2023-07-10 15:00 | disposition home or self-care (01) | DRG 816 ==
LOC: ER 18:48 → 6EST 07-08 02:14 → EDBEDREQTM 07-08 02:18 → EDBEDREQ 07-08 02:18 → ER 07-08 03:45 → 3WST 07-09 21:48
PROVIDERS: ADMIT Internal Medicine; ATTEND Internal Medicine
DX: T40.5X1A Poisoning by cocaine, accidental (unintentional), initial encounter (principal); I50.23 Acute on chronic systolic (congestive) heart failure; I42.6 Alcoholic cardiomyopathy; D63.8 Anemia in other chronic diseases classified elsewhere; E87.1 Hypo-osmolality and hyponatremia; I11.0 Hypertensive heart disease with heart failure; Z79.01 Long term (current) use of anticoagulants; Z68.41 Body mass index [BMI] 40.0-44.9, adult; Z86.711 Personal history of pulmonary embolism; E11.9 Type 2 diabetes mellitus without complications; E66.9 Obesity, unspecified; I25.5 Ischemic cardiomyopathy; Z59.00 Homelessness unspecified; F14.988 Cocaine use, unspecified with other cocaine-induced disorder; J45.909 Unspecified asthma, uncomplicated; Z86.718 Personal history of other venous thrombosis and embolism; Z88.6 Allergy status to analgesic agent
CPT/HCPCS: 36415; 71045; 76700; 80048; 80053; 80061; 80305; 82607; 82728; 82746; 82962; 83036; 83540; 83550; 83735; 83880; 84100; 84439; 84443; 84484; 85025; 93005; 93306; 93970; 99285; J1650; J1815; J1940; J2405

== ENCOUNTER 2023-08-04 23:02 | Emergency (ER) | payer BC, MEDICAID ==
[~2023-08-04] VITALS: Ht 185.4 cm; Wt 124.0 kg
[2023-08-04 23:15] VITALS: TEMP 98.1
[2023-08-05 02:28] LABS: CHLORIDE 102 mEq/L (98-107); POTASSIUM 4.4 mEq/L (3.5-5.1); SODIUM 133 mEq/L (136-145)
[2023-08-05 02:29] LABS: BASOPHILS % 0.4 % (0.0-2.0); CALCIUM 8.4 mg/dL (8.7-10.4); CARBON DIOXIDE 27 mEq/L (21-32); EOSINOPHILS % 0.3 % (0.0-5.0); HEMOGLOBIN. 10.9 g/dL (14.0-18.0); LYMPHOCYTES % 16.2 % (20.0-50.0); MEAN CORPUSCULAR HEMOGLOBIN 27.8 pg (28.0-32.0); MEAN CORPUSCULAR HGB CONC 32.9 g/dL (31.0-37.0); MEAN CORPUSCULAR VOLUME 84.5 fL (80.0-94.0); MEAN PLATELET VOLUME 6.8 fl (7.4-10.4); NEUTROPHILS % 75.1 % (40.0-76.0); PLATELET 381 x1000/uL (130-400); RED BLOOD CELL COUNT 3.91 mill/uL (4.7-6.1); RED CELL DISTRIBUTION WIDTH 16.9 % (11.6-14.6); WHITE BLOOD COUNT 9.1 x1000/uL (4.5-11.0)
[2023-08-05 02:33] VITALS: PULSE 111; RESP 20; O2SAT 99
[2023-08-05] MEDS: ALBUTEROL (0.083%) 2.5MG/3ML NEB HHN ONE (02:33)
[2023-08-05 02:34] LABS: GLUCOSE 133 mg/dL (70-105); UREA NITROGEN BLOOD 13 mg/dL (9-23)
[2023-08-05 02:36] LABS: TROPONIN I HIGH SENSITIVITY 13 ng/L (3.0-53)
[2023-08-05] MEDS: ACETAMINOPHEN 325MG TABLET PO ONE (03:08)
[2023-08-05] MEDS ORDERED: BACL-141 MT (04:32)
[2023-08-05] MEDS ORDERED: ACET-2708 MT (04:32)
[2023-08-05] MEDS ORDERED: GUAI600T26 MT (04:34)
[2023-08-05 04:46] LABS: TROPONIN I HIGH SENSITIVITY 12 ng/L (3.0-53)
[2023-08-05 06:03] VITALS: BP 121/75; PULSE 100
== END 2023-08-05 06:04 | disposition home or self-care (01) ==
LOC: ER 23:02
DX: R05.9 Cough, unspecified (principal); R60.9 Edema, unspecified; D64.9 Anemia, unspecified; I11.0 Hypertensive heart disease with heart failure; I50.9 Heart failure, unspecified; E11.9 Type 2 diabetes mellitus without complications; J45.909 Unspecified asthma, uncomplicated; F12.10 Cannabis abuse, uncomplicated
CPT/HCPCS: 99285; 80048; 83880; 85025; 84484; 36415; 71045; 94640; 93005; Z7610 ×3

== ENCOUNTER 2023-08-26 18:59 | Emergency (ER) | payer BC ==
[~2023-08-26] VITALS: Ht 188 cm; Wt 121.0 kg
[~2023-08-26 18:59] MED LIST changes: +ACET-2708 MT; +GUAI600T26 MT
[2023-08-26 19:05] VITALS: O2SAT 99
[2023-08-26 20:11] LABS: BASOPHILS % 0.6 % (0.0-2.0); EOSINOPHILS % 1.3 % (0.0-5.0); HEMATOCRIT. 33.5 % (42.0-52.0); HEMOGLOBIN. 10.7 g/dL (14.0-18.0); LYMPHOCYTES % 19.2 % (20.0-50.0); MEAN CORPUSCULAR HEMOGLOBIN 26.9 pg (28.0-32.0); MEAN CORPUSCULAR VOLUME 84.2 fL (80.0-94.0); MEAN PLATELET VOLUME 7.1 fl (7.4-10.4); MONOCYTES % 9.7 % (2.0-8.0); NEUTROPHILS % 69.2 % (40.0-76.0); PLATELET 296 x1000/uL (130-400); RED BLOOD CELL COUNT 3.97 mill/uL (4.7-6.1); WHITE BLOOD COUNT 5.6 x1000/uL (4.5-11.0)
[2023-08-26 20:24] LABS: TROPONIN I HIGH SENSITIVITY 14 ng/L (3.0-53)
[2023-08-26 20:54] LABS: CARBON DIOXIDE 26 mEq/L (21-32); CHLORIDE 103 mEq/L (98-107); SODIUM 135 mEq/L (136-145)
[2023-08-26 20:55] LABS: CALCIUM 8.3 mg/dL (8.7-10.4)
[2023-08-26 20:59] LABS: CREATININE 0.9 mg/dL (0.6-1.3)
[2023-08-26 21:00] LABS: GLUCOSE 114 mg/dL (70-105); UREA NITROGEN BLOOD 10 mg/dL (9-23)
[2023-08-26 21:02] LABS: ALANINE AMINOTRANSFERASE 20 IU/L (10-49); ALBUMIN 3.6 g/dL (3.2-4.8); ASPARTATE AMINOTRANSFERASE 25 IU/L (<34)
[2023-08-26 22:11] LABS: TROPONIN I HIGH SENSITIVITY 16 ng/L (3.0-53)
[2023-08-26] MEDS ORDERED: CETI10CA2 MT (22:25)
[2023-08-26] MEDS ORDERED: TUSSL MT (22:25)
[2023-08-26] MEDS ORDERED: ALBU6.7H15 INH (22:27)
[2023-08-26 23:14] VITALS: BP 121/85; PULSE 97; RESP 18; TEMP 97.8
== END 2023-08-26 23:15 | disposition home or self-care (01) ==
LOC: ER 18:59
DX: J06.9 Acute upper respiratory infection, unspecified (principal); I11.0 Hypertensive heart disease with heart failure; I50.9 Heart failure, unspecified; E11.9 Type 2 diabetes mellitus without complications; J45.909 Unspecified asthma, uncomplicated; F12.10 Cannabis abuse, uncomplicated; Z79.899 Other long term (current) drug therapy; Z20.822 Contact with and (suspected) exposure to COVID-19
CPT/HCPCS: 36415; 71045; 80053; 83880; 84484; 85025; 87426; 87804; 93005; 99285

== ENCOUNTER 2024-07-05 21:15 | Emergency (ER) | payer BC ==
[~2024-07-05] VITALS: Ht 188 cm; Wt 115.2 kg
[~2024-07-05 21:15] MED LIST changes: +ALBU6.7H15 INH; -AMOX-424 MT; -AMOX-424 PO; -AMOX-494 MT; -AMOX1TAB16 PO; -BO1 TP; -CEPH500C2 MT; +CETI10CA2 MT; +COR3 MT; +EMPA10TA MT; +FURO-151 MT; +FURO80TA87 MT; -HYDR-4001 MT; -HYDR-4001 PO; +LOSA50TA41 MT; -SULF1TAB48 MT; -SULF1TAB48 PO; -TOPUD PO
[2024-07-05 21:31] VITALS: O2SAT 99
[2024-07-05] MEDS ORDERED: AMOX1TAB16 MT (21:42)
[2024-07-05] MEDS: HYDROCODONE/ACETAMINOPHEN 5/325MG TABLET PO ONE (22:29)
[2024-07-05 22:30] VITALS: BP 140/90; PULSE 110; RESP 18; TEMP 36.8; O2SAT 99
== END 2024-07-05 22:35 | disposition home or self-care (01) ==
LOC: ER 21:15
DX: K04.7 Periapical abscess without sinus (principal); K02.9 Dental caries, unspecified; E11.9 Type 2 diabetes mellitus without complications; I11.0 Hypertensive heart disease with heart failure; I50.9 Heart failure, unspecified; Z79.84 Long term (current) use of oral hypoglycemic drugs; Z79.899 Other long term (current) drug therapy; Z86.718 Personal history of other venous thrombosis and embolism; Z88.6 Allergy status to analgesic agent
CPT/HCPCS: 99283